=== PATIENT | female | born 1945 | race Caucasian/White ===

== ENCOUNTER 2017-07-20 10:56 | Outpatient (CLI) | payer MEDICAID ==
[~2017-07-20 10:56] MED LIST: HYDR-565 PO; INSU100I25 SQ; LEVO25TA7 PO; NITR100C6 PO; OMEP20CA10 PO; SILV20CR13 TOP; TORS20TA3 PO
[2017-07-20 11:02] VITALS: BP 145/74
== END 2017-07-20 11:50 | disposition home or self-care (01) ==
LOC: ORTHO 10:56
PROVIDERS: ATTEND Nurse Practitioner Family
DX: S82.831A Other fracture of upper and lower end of right fibula, initial encounter for closed fracture (principal); E11.9 Type 2 diabetes mellitus without complications; Z88.2 Allergy status to sulfonamides; X58.XXXA Exposure to other specified factors, initial encounter; Y93.89 Activity, other specified; Y92.89 Other specified places as the place of occurrence of the external cause; Y99.8 Other external cause status
CPT/HCPCS: 73590; 99213

== ENCOUNTER 2017-08-24 10:06 | Outpatient (CLI) | payer MEDICAID | END 2017-08-24 10:52 | disposition home or self-care (01) | LOC: ORTHO 10:06 | PROVIDERS: ATTEND Nurse Practitioner Family | DX: S82.831G Other fracture of upper and lower end of right fibula, subsequent encounter for closed fracture with delayed healing (principal); R60.0 Localized edema; E11.9 Type 2 diabetes mellitus without complications; Z88.2 Allergy status to sulfonamides; W19.XXXD Unspecified fall, subsequent encounter | CPT/HCPCS: 73590; 99213 ==